=== PATIENT | female | born 1945 | race Caucasian/White ===

== ENCOUNTER 2016-09-29 18:32 | Observation (INO) | payer MEDICARE, OTHER ==
[~2016-09-29] VITALS: Ht 170.2 cm; Wt 62.5 kg
[2016-09-29] VITALS (7 sets, daily range): BP systolic 131–161; BP diastolic 54–73; PULSE 69–124; RESP 14–28; O2SAT 97–99
--- NOTE | 2016-09-29 19:07 | ED.REPORT ---
HPI-Chest Pain 40 and Over Date of Service Sep 29, 2016 ED Provider: Ernesto Hardy MD Pt is a 70 year old female with a history of irregular heart rate and chronic leg pain who presents to the ED via EMS complaining of sharp, radiating, left- sided chest pain onset 2.5 hours prior to arrival. She c/o associated left- sided neck pain, left arm pain, and SOB. Pt also c/o leg pain, which she reports it chronic. She denies fever, cough, and leg swelling. The pt reports that she started to back out of her drive way when the pain started, and she was unable to stop or think due to the pain. She denies a history of A-fib, smoking, or recent falls. Pt was provided aspirin en route. Nursing Notes Stated Complaint: CHEST PAIN Chief Complaint: Chest Pain Nursing Notes Reviewed: Yes Allergies: Coded Allergies: No Known Allergies (Unverified , 09/29/16) Scheduled Bimatoprost (Lumigan) 45 Drop/2.5 Ml Ophsoln 45 DROP BOTH_EYES HS Hydrochlorothiazide (Hydrochlorothiazide) 25 Mg Tablet 25 MG PO DAILY Levothyroxine (Levothyroxine) 75 Mcg Tablet 75 MCG PO DAILY Oxybutynin Chloride (Oxybutynin Chloride) 5 Mg Tablet 5 MG PO DAILY Pantoprazole DR (Protonix) 40 Mg Tablet 40 MG PO DAILY Ranitidine (Ranitidine) 150 Mg Capsule 150 MG PO DAILY Scheduled PRN Docusate Sodium (Colace) 100 Mg Capsule 100 MG PO DAILY PRN PRN For Constipation Hydrocodone-Acetaminophen 5-325 mg (Hydrocodone-Acetaminophen 5-325 mg) 1 Each Tablet 1 TABLET PO Q4H PRN PRN For Pain Miscellaneous Medications Baclofen (Baclofen) 10 Mg Tablet 10 MG PO General Time Seen by MD: 19:06 Chief Complaint Chest pain Hx Obtained From: Patient, EMS Arrived By: Ambulance Sudden in Onset?: No Symptom Duration: Since onset Location: : Chest left Quality: Painful, Pressure, Sharp Severity: Current: Moderate Severity: Maximum: Moderate Recent Healthcare: No recent doctor visit, No recent hospitalization Similar Sx Previous: No Past Medical History Past Medical History Adrenalopathy - Sees Dr. Villalobos Chronic leg pain Past Surgical History Denies Smoking History Never Smoker Social History Other Social History: Good social support, Ambulatory Status Independent Review of Systems Constitutional: Denies: Fever Respiratory: Reports: Shortness of breath, Denies: Non-productive cough Cardiovascular: Reports: Chest pain Musculoskeletal: Reports: Extremity pain, Neck pain, Denies: Extremity swelling Complete sys rev & neg: except as marked. Physical Exam Initial Vital Signs Vital Signs (First) Date Time Temp Pulse Resp B/P Pulse Ox O2 Delivery O2 Flow Rate FiO2 09/29/16 18:42 36.7 124 20 161/67 98 09/29/16 19:50 Room Air Initial VS: Reviewed Head / Eyes: Atraumatic, Normocephalic Neck: Supple, Full range of motion Extremities: Vascular intact, Neuro intact Skin: Warm, Dry, No cyanosis Neurologic: Alert, Oriented, Nonfocal Psychiatric: Mood/affect normal, Behavior normal General/Constitutional: Awake, Alert Respiratory / Chest: Atraumatic, Breath sounds NL, Breath sounds = bilat Cardiovascular: Heart sounds NL, No gallop, No murmurs Heart Rate / Rhythm: Positive: Irreg irregular rhythm, Tachycardia Interpretation & Diagnostics Lab Results Interpretation Result Diagram: 09/29/165 09/29/161854 Test 09/29/16 18:55 White Blood Count 7.0th/mm3 (3.8-10.1) Red Blood Count 4.53mil/mm3 (3.90-5.20) Hemoglobin 13.1g/dL (12.0-15.6) Hematocrit 38.9% (35.0-46.0) Mean Corpuscular Volume 85.9fL (81-100) Mean Corpuscular Hemoglobin 28.9pg (27.0-35.0) Mean Corpuscular Hemoglobin Concent 33.7% (32.0-37.0) Red Cell Distribution Width 13.6% (12.3-15.4) Platelet Count 282bil/L (150-400) Neutrophils (%) (Auto) 54.0% (40-74) Lymphocytes (%) (Auto) 31.7% (14-46) Monocytes (%) (Auto) 10.7% (4-12) Eosinophils (%) (Auto) 2.7% (0-5) Basophils (%) (Auto) 0.6% (0-3) D-Dimer < 0.50mg/L FEU (<0.50) Sodium Level 136mEq/L (134-144) Potassium Level 2.9mEq/L (3.5-5.2) Chloride Level 96mEq/L (97-108) Carbon Dioxide Level 21mmol/L (18-29) Blood Urea Nitrogen 12mg/dL (8-27) Creatinine 0.78mg/dL (0.57-1.00) Estimat Glomerular Filtration Rate 104mL/min (>59) Glucose Level 115mg/dL (60-99) Calcium Level 9.4mg/dL (8.5-10.1) Magnesium Level 1.8mg/dL (1.6-2.6) Total Bilirubin 0.4mg/dL (0.0-1.2) Aspartate Amino Transf (AST/SGOT) 20U/L (0-50) Alanine Aminotransferase (ALT/SGPT) 11U/L (0-32) Alkaline Phosphatase 104U/L (25-165) Total Protein 7.5g/dL (6.4-8.4) Albumin 4.1g/dL (3.4-5.0) Thyroid Stimulating Hormone (TSH) 2.020uIU/mL (0.450-4.500) ECG Interpretation ECG Interpretation: Atrial fibrillation with a rate of 116. Non-specific repol abnormality, diffuse leads No ST changes No acute Time: 19:01 Interpreted by: ED physician ECG Interpretation: Sinus arrythmia with a rate of 82 Time: 21:03 Interpreted by: ED physician ECG Interpretation: Sinus rhythm with a rate of 99. ST impression v3v4 No acute changes Time: 21:45 Interpreted by: ED physician X-Ray Chest Interpretation Chest Xray Interpretation: IMPRESSION: Acute disease is not seen in the upright portable chest. Cause of pain is not identified. Dictated by: Vikas Osborne M.D. on 09/29/2016 at 19:45 View: Portable, 1 view Interpretation / Wet Read by: Interpret - Radiologist Re-Eval/Medical Decision Med Decision/Clinical Course A 70-year-old lady with no known heart disease presenting with chest pain and new onset atrial fibrillation. She had rapid ventricular response to her atrial fibrillation, this was treated with IV Cardizem. With good results with this and she converted back into sinus rhythm with rate control. She continued have some chest pain. 2 repeat EKGs showed sinus rhythm, and a second there is a question of some subtle ST depression on V3 and V4. The patient obtained some relief from her pain from morphine and nitrates, we placed a half inch of Nitropaste. We also gave a GI cocktail. After discussion with the hospitalist, we started heparin on the cardiac protocol. Source of Hx: Old records Time of Eval: 20:36 Re-Evaluation/Progress Note: Pt rechecked. She reports that her chest pain is improved, but still present. Her A-fib rate is controlled. Informed pt of results and plan for admission. Pt understands and agrees with plan for admission. All questions addressed. Time of Eval: 22:27 Patient Status: Condition improved Re-Evaluation/Progress Note: Pt rechecked. She reports improved chest pain, but that it is still present. All questions addressed. Time of Eval: 22:52 Re-Evaluation/Progress Note: Pt rechecked. Informed pt of plan for treatment. Pt understands and agrees with plan for treatment. All questions addressed. Consultation : Referral / Consult Name: Shari Osman MD Consulted With: Hospitalist Call Returned at: 22:41 Photo Mask Inspector: Will see patient, Agrees with eval, Agrees with plan, Accepts admit Counseled Regarding: Diagnosis, Lab results, Need for admission Discharge & Departure Disposition: ADMITTED TO HOSPITAL Discharge Condition All VS Reviewed: Yes Condition: Stable Referrals: Sunshine Mancia MD (PCP) Amberly Attestation Portions of this note were transcribed by Inge Patel. I, Dr. Hardy personally performed the history, physical exam and medical decision-making; I reviewed and confirmed the accuracy of the information in the transcribed note. Signed by : Amberly Quezada, 09/29/16 and 21:40. copies to: Sunshine Mancia MD, Donald L MD Sep 29, 2016 19:07 Inge Balderas Sep 29, 2016 19:42
[2016-09-29] MEDS ORDERED: BIMA2.5D5 BOTH_EYES (19:11)
[2016-09-29] MEDS ORDERED: PANT40TA2 PO (19:11)
[2016-09-29] MEDS ORDERED: LEVO75TA4 PO (19:11)
[2016-09-29] MEDS ORDERED: OXYB5TAB10 PO (19:11)
[2016-09-29 19:12] LABS: BASOPHILS % (AUTO) 0.6 % (0-3); EOSINOPHILS % (AUTO) 2.7 % (0-5); MONOCYTES % (AUTO) 10.7 % (4-12); Mean Corpuscular Hemoglobin 28.9 pg (27.0-35.0); Mean Corpuscular Volume 85.9 fL (81-100); Platelet Count 282 bil/L (150-400)
[2016-09-29] MEDS ORDERED: RANI150C4 PO (19:12)
[2016-09-29] MEDS ORDERED: HYDR-4003 PO (19:12)
[2016-09-29] MEDS ORDERED: DOCU-41 PO (19:12)
[2016-09-29] MEDS ORDERED: HYDR25TA4 PO (19:12)
[2016-09-29] MEDS ORDERED: BACL10TA PO (19:12)
[2016-09-29 19:38] LABS: TROPONIN T < 0.010 ug/L (0.0-0.011)
[2016-09-29] MEDS ORDERED: Diltiazem Inj 125 MG in Dextrose 5% 100 ML IV SCH (19:39)
[2016-09-29] MEDS ORDERED: Diltiazem 5 mg/mL 5 mL Inj IVPUSH ONE (19:40)
[2016-09-29 19:44] LABS: Magnesium 1.8 mg/dL (1.6-2.6)
--- NOTE | 2016-09-29 19:48 | DRSVH ---
PROCEDURE: X-RAY CHEST ONE VIEW, PORTABLE ([id number]) INDICATIONS: chest pain TECHNIQUE: One view of the chest was acquired. COMPARISON: None. FINDINGS: Surgical changes and devices: neuropathologist leads are seen over the chest Lungs and pleura: No pleural effusions or pneumothorax. Lungs are clear. Mediastinum: Mediastinal contours appear normal. Heart size is normal. Bones and chest wall: No suspicious bony lesions. Overlying soft tissues appear unremarkable. IMPRESSION: Acute disease is not seen in the upright portable chest. Cause of pain is not identified. Dictated by: Vikas Osborne M.D. on 09/29/2016 at 19:45 Approved by: Vikas Osborne M.D. on 09/29/2016 at 19:46
[2016-09-29] MEDS ORDERED: Potassium Chloride 20 mEq/15 mL 15mL Oral Soln PO ONE (20:35)
[2016-09-29] MEDS ORDERED: Nitroglycerin 2% 1 Gm Ointment TOPICAL SCH (22:30)
[2016-09-29] MEDS ORDERED: LidocaineVisc 2%:Antacid 1:1 10 mL Syringe PO ONE (22:30)
[2016-09-29] MEDS ORDERED: Heparin 25K Unit/500mL 0.45 NS 25,000 UNIT in IV Premix 1 EACH IV SCH (22:55)
[2016-09-29] MEDS ORDERED: Heparin 5,000 Unit/mL Inj IVPUSH PRN (22:55)
[2016-09-29] MEDS ORDERED: Heparin 5,000 Unit/mL Inj IVPUSH ONE (22:55)
[2016-09-29] MEDS ORDERED: _Albuterol-HFA 60 Puff Inhaler INHALATION PRN (23:00)
[2016-09-29] MEDS ORDERED: Ondansetron 2 mg/mL 2 mL Inj IVPUSH PRN (23:55)
[2016-09-29] MEDS ORDERED: Polyethylene Glycol (PEG) 17 Gm Powder PO PRN (23:55)
[2016-09-29] MEDS ORDERED: Alum-Mag Hydrox-Simeth 30 mL Suspension PO PRN (23:55)
[2016-09-30] VITALS (10 sets, daily range): BP systolic 102–162; BP diastolic 57–80; PULSE 58–77; RESP 14–18; O2SAT 97–99
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
[2016-09-30] MEDS ORDERED: HYDROcodone-APAP 5-325 mg Tablet PO PRN (01:30)
[2016-09-30 05:05] LABS: BASOPHILS % (AUTO) 0.4 % (0-3); EOSINOPHILS % (AUTO) 3.1 % (0-5); MONOCYTES % (AUTO) 10.6 % (4-12); Mean Corpuscular Hemoglobin 29.3 pg (27.0-35.0); Mean Corpuscular Volume 86.8 fL (81-100); NEUTROPHILS % (AUTO) 50.2 % (40-74); Platelet Count 266 bil/L (150-400)
[2016-09-30 05:54] LABS: Magnesium 3.6 mg/dL (1.6-2.6)
[2016-09-30 05:57] LABS: TROPONIN T 0.01 ug/L (0.0-0.011)
--- NOTE | 2016-09-30 07:29 | NUR ---
Admit PT admitted from ED after presenting with CP and SOB. PT found to be in new afib. PT was on dilt gtt for some time in the ED, but has been in NSR since 2229 when the gtt was stopped. PT denies any CP at this time. NO SOB noted. PT on RA and VS are WNL. PT is on hep gtt and it is infusing per protocol. PT in NSR with rate 50-70's. Her assessment is mostly benign aside from some paresis of the limbs and mild weakness due to pt adrenal myeloneuropathy. PT uses a cane to ambulate in room and her gait is steady. PT reminded to call for assist to the bathroom because of IV pump. PT has a stress test ordered. Will CTM for any changes.
[2016-09-30] MEDS ORDERED: _Cephalexin 500 mg Capsule PO SCH (08:30)
[2016-09-30] MEDS ORDERED: ALBU8.5H2 INHALATION (10:06)
[2016-09-30] MEDS: Pantoprazole 40 mg ER24 Tablet PO SCH (10:16)
[2016-09-30] MEDS ORDERED: Albuterol 2.5 mg/3 mL Inhalation Solution NEB PRN (14:10)
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
--- NOTE | 2016-09-30 14:41 | DRSVH ---
PROCEDURE: EITHER REST OR STRESS ONLY Pharmacological stress myocardial perfusion SPECT; gated images not acquired. RADIOPHARMACEUTICAL: 21.8 mCi of Tc-99m sestamibi intravenously at peak pharmacologic stress. INDICATIONS: CHEST PAIN. TECHNIQUE: Radiopharmaceutical was injected at peak stress test. SPECT images were obtained. SPECT myocardial perfusion images were displayed in short axis, horizontal long axis, and vertical axis vi ews. COMPARISON: None. CARDIAC STRESS: A pharmacologic stress test was performed under the supervision of an attending romel engle, using an infusion of lexiscan. Hemodynamic data: There is normal blood pressure and heart rate response to pharmacologic stress. Symptoms: The patient denied anginal chest pain during drug infusion. Aminophylline: 100 mg EKG: No diagnostic EKG changes of ischemia; no ectopy. FINDINGS: Raw data: There is good tracer uptake by the myocardium. No significant motion artifacts. Left ventricular function: Gated images were not obtained to assess wall motion and ejection fractio n, due to irregular heart rate. Myocardial perfusion: There is a small area of mildly decreased uptake affecting the apical anterola teral wall that normalizes on the prone images (making this finding more likely related to artifact). No other imaging defects appreciated IMPRESSION: 1. Appropriate hemodynamic response to pharmacologic stress. 2. No chest pain or diagnostic ECG changes with stress 3. No scintigraphic evidence for significant areas of myocardial ischemia at the level of stress achi eved. 4. Gated images were not obtained Dictated by: Estrella Garcia M.D. on 09/30/2016 at 14:36 Approved by: Estrella Garcia M.D. on 09/30/2016 at 14:39
--- NOTE | 2016-09-30 14:50 | DRSVH ---
[facility] [address] [place] [address] Echocardiogram Report Name: EDVIN CARRERO EStudy Date: Height: 67 in Hospital Exam Location: [facility] Weight: 141 lb Gender: Female BSA: 1.7 m2 : 1945 Age: 70 yrs BP: 140/67 mmHg Reason For Study: AFIB, CHEST PAIN Ordering Physician: Abel Loiazaist Performed By: Benny Hill Referring Physician: Dr Sunshine Mancia Interpretation Summary 1. Normal left ventricular size, wall thickness and systolic function with an estimated EF of 60-65% 2. Normal right ventricular size and systolic function 3. No evidence for valvular pathology Compared to the previous study (images reviewed), no appreciable change Procedure: A two-dimensional transthoracic echocardiogram with color flow and Doppler was performed. The study quality was technically good. Comparison is made with the echocardiogram of 08/22/11. The patient was in normal sinus rhythm during the exam. Left Ventricle: The left ventricle is normal in size. There is normal left ventricular wall thickness. The ejection fraction is estimated to be 60-65%. There are no focal wall motion abnormalities. Right Ventricle: The right ventricle is normal in size and function. Atria: Both atria are normal in size. The interatrial septum is intact with no evidence for an atrial septal defect. Mitral Valve: The mitral valve is normal in structure and function. There is trace mitral regurgitation. Aortic Valve: The aortic valve is normal in structure and function. The aortic valve is trileaflet. The aortic valve opens well. No aortic regurgitation is present. Tricuspid Valve: The tricuspid valve is normal in structure and function. There is a trace or physiologic amount of tricuspid regurgitation. Pulmonary artery pressures cannot be estimated because of the lack of a measurable TR jet velocity. Pulmonic Valve: The pulmonic valve is not well visualized. There is trace pulmonic regurgitation. Great Vessels: The aortic root is normal size. The dimensions of the ascending aorta are normal. The pulmonary artery is normal size. The IVC is of normal diameter and collapses greater than 50% with a sniff. This suggests a low right atrial pressure of 3 mm Hg. Pericardium/ Pleura There is no pericardial effusion. There is no pleural effusion. MMode/2D Measurements & Calculations LVIDd: 4.2 cm LA dimension: 2.9 cm RA long axis Ao root diam LVIDs: 2.7 cm FS: 36.0 % LA A2 area: 15.4 cm RA area Aortic Jxn EPSS: 0.42 cm LA A4 area: 12.6 cm IVSd: 0.73 cm LA length (vol): 4.1 cm : 10.2 cm asc Aorta LVPWd: 0.76 cm LA vol: 40.2 ml RA vol: 23.6 mlDiam: 3.0 cm LA vol index RA : 13.6 mm2 IVC diam: 1.2 cm LV lugo. diameter/BSA LV sys. diameter/BSA (cm/m^2): 2.4 (cm/m^2): 1.5 Doppler Measurements & Calculations Ao V2 max MV E max yoel MV E/A: 0.79 PA V2 max : 106.9 cm/sec : 66.8 cm/sec Med Peak E' Yoel : 69.5 cm/sec Ao max PG MV A max yoel PA mean PG : 4.6 mmHg : 84.6 cm/sec E/E' med: 11.6 Ao mean PG PA Accel Time : 3.0 mmHg : 0.12 sec MV dec time Ao V2 mean PA V2 mean : 0.16 sec : 84.3 cm/sec : 54.3 cm/sec Ao V2 VTI: 22.4 cm PA pr(Accel) : 27.6 mmHg Reading Physician:02:49 PM
[2016-09-30] MEDS: MeTOProlol XL 25 mg ER24 Tablet PO SCH ×2 (15:11→22:43)
--- NOTE | 2016-09-30 15:18 | NUR ---
Social Work: Initial Assessment/Multidisciplinary Rounds D: Per EMR review, pt is a 70 year old female admitted for Chest Pain/Afib. Pt is Medicare with Supplement; pt has no LTC insurance or VA benefits. PCP is Sunshine Mancia MD. NOK is Dre Chaparro, spouse, . Advanced directives info declined. Readmit score not entered at this time. Pt discussed in am rounds. Pt scheduled for a stress test today. Capacity for self-care addressed- no concerns noted at this time as pt has been participating in her own care and ambulating I. DROP WIRER met with the patient and spouse at bedside. Sw role explained, contact info provided and d/c planning checklist provided. Pt and spouse live in a single story home in [place]. The patient is I with ADLs, uses a cane for ambulating and continues to drive. Pt has never had HH or skilled rehab. Pt and spouse express no concerns for discharge home and are receptive to discharge planning should needs arise. No social work needs identified at this time. A: Pt who is I at baseline and lives with her spouse. P: Anticipate pt to discharge home via POV once medically stable; DROP WIRER to continue to follow to assess for discharge needs. AMBIKA Moulton Addendum: 09/30/16 at 1525 by HILL ROACH SS Amended: Links added.
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
--- NOTE | 2016-09-30 16:36 | NUR ---
Stress Test 0930 - Nuclear Medicine called to say that her stress test would take place today and that it would be okay for her to receive her AM medications. 0945 - Discussed her care with Dr. Johnson, Dr. Bonilla, and the rest of the multidisciplinary care team during morning rounds. They said that if her stress test results turned out well she would likely discharge today. 1030 - Received a verbal order from Dr. Bonilla to discontinue her Heparin for the stress test. It was discontinued. About 1100 - She left for her stress test at this time. Telemetry taken off and Technical Planner notified. 1239 - She returned about this time and her Heparin was restarted per MD orders. Her telemetry was not placed back on right away as Benny, the hydroelectric systems technician, wanted to keep it off for the Echocardiogram. Telemetry was placed back on her once the Echo test was completed. Technical Planner was notified. 3691 - Spoke to Dr. Garcia who wanted her to get up to walk, keep her Heparin drip going, start Warfarin per Pharmacy dosing, start Metoprolol, and likely discharge tomorrow. She was able to get up and walk around the unit with her and tolerated it well. The medications were started or continued according to MD orders. Care continues.
--- NOTE | 2016-09-30 19:09 | NUR ---
YOEL explained and signed. Copy of YOEL and Medicare self administered mediation information given to pt.
--- NOTE | 2016-09-30 19:45 | PCM.CONPHA ---
Subjective Date of Service: Sep 30, 2016 Chest pain Reason for Pharmacy Consult: Vancomycin Dosing Objective Vital Signs Date Time Temp Pulse Resp B/P Pulse Ox O2 Delivery O2 Flow Rate FiO2 09/30/16 15:30 36.6 62 18 144/69 97 Room Air 09/30/16 10:33 77 09/30/16 10:09 36.7 65 17 140/67 98 Room Air 09/30/16 04:52 68 09/30/16 04:33 36.8 58 16 131/71 99 Room Air 09/30/16 01:38 36.6 70 16 162/80 99 Room Air 09/30/16 01:05 36.7 65 16 137/59 99 Room Air 09/30/16 01:03 65 16 137/59 99 Room Air 09/29/16 22:06 69 14 131/54 97 Room Air 09/29/16 21:10 96 28 150/73 97 Room Air 09/29/16 21:08 83 150/73 Room Air 09/29/16 20:43 74 28 148/56 99 Room Air 09/29/16 19:50 102 22 147/63 97 Room Air Intake and Output 09/28/16 09/29/16 09/30/16 00:00 00:00 00:00 Intake Total 225 ml Balance 225 ml Weight (Kilograms): 63.900 Height (Feet): 5 Height (Inches): 7.00 Test 09/29/16 18:55 09/30/16 04:50 09/30/16 10:05 09/30/16 14:14 D-Dimer < 0.50mg/L FEU (<0.50) Thyroid Stimulating Hormone (TSH) 2.020uIU/mL (0.450-4.500) White Blood Count 7.0th/mm3 (3.8-10.1) Red Blood Count 4.54mil/mm3 (3.90-5.20) Mean Corpuscular Volume 86.8fL (81-100) Mean Corpuscular Hemoglobin 29.3pg (27.0-35.0) Mean Corpuscular Hemoglobin Concent 33.8% (32.0-37.0) Red Cell Distribution Width 13.8% (12.3-15.4) Platelet Count 266bil/L (150-400) Neutrophils (%) (Auto) 50.2% (40-74) Lymphocytes (%) (Auto) 35.6% (14-46) Monocytes (%) (Auto) 10.6% (4-12) Eosinophils (%) (Auto) 3.1% (0-5) Basophils (%) (Auto) 0.4% (0-3) Erythrocyte Sedimentation Rate 18mm/hr (0-40) Sodium Level 147mEq/L (134-144) Potassium Level 4.2mEq/L (3.5-5.2) Chloride Level 110mEq/L (97-108) Carbon Dioxide Level 18mmol/L (18-29) Blood Urea Nitrogen 10mg/dL (8-27) Creatinine 0.79mg/dL (0.57-1.00) Estimat Glomerular Filtration Rate 103mL/min (>59) Glucose Level 126mg/dL (60-99) Calcium Level 10.6mg/dL (8.5-10.1) Magnesium Level 3.6mg/dL (1.6-2.6) Total Bilirubin 0.4mg/dL (0.0-1.2) Aspartate Amino Transf (AST/SGOT) 24U/L (0-50) Alanine Aminotransferase (ALT/SGPT) 13U/L (0-32) Alkaline Phosphatase 155U/L (25-165) Troponin T 0.010ug/L (0.0-0.011) C-Reactive Protein 0.1mg/dL (0.0-0.5) Total Protein 6.8g/dL (6.4-8.4) Albumin 4.0g/dL (3.4-5.0) Hemoglobin 14.0g/dL (12.0-15.6) Hematocrit 41.3% (35.0-46.0) Prothrombin Time 10.7sec (8.1-12.5) Prothromb Time International Ratio 1.00ratio Test 09/30/16 17:23 Activated Partial Thromboplast Time 39.4sec (22.8-33.0) Assessment/Plan Assessment/Plan Warfarin management per pharmacy Indication: atrial fibrillation Home dose: not applicable, new start INR today: 1.0 Give warfarin 5 mg PO one time this evening. Patient is therapeutically anticoagulated with heparin drip. Serial INRs ordered. Pharmacy to continue to monitor and dose warfarin daily. Thank you, Ambar Morgan Pharmacist Ambar Morgan Sep 30, 2016 19:45
[2016-10-01 00:30] VITALS: BP 107/65; PULSE 52; RESP 16; O2SAT 96
[2016-10-01 03:54] VITALS: BP 110/66; PULSE 58; O2SAT 97
[2016-10-01 05:56] LABS: INR 1.01 ratio
--- NOTE | 2016-10-01 06:38 | NUR ---
HR/BP/UA Sample Pt's HR has remained sinus 50s-60s with no s/s of weakness or SOB. Pt continues to have SBP in the 90s-100s and pt's MAP is >60. Pt has been made aware that we still need a urine sample to be sent. A clean hat has been provided in the pt's toilet in the and a urine sample cup is sitting on the counter in front of the pt's room.
[2016-10-01 08:30] VITALS: PULSE 53; RESP 16; O2SAT 94
[2016-10-01] MEDS: MeTOProlol XL 25 mg ER24 Tablet PO SCH (08:30)
[2016-10-01] MEDS: Pantoprazole 40 mg ER24 Tablet PO SCH (08:59)
[2016-10-01 10:50] VITALS: PULSE 49
--- NOTE | 2016-10-01 10:58 | PCM.DIMED ---
Discharge Instructions Date of Service Oct 01, 2016 Dates of Hospitalization Sep 29, 2016 at 22:50 Discharge Diagnosis Discharge Diagnosis Chest pain ruled out ACS. Present on admission. Resolved. Paroxysmal Atrial fibrillation. Present on admission. Resolved. Hypokalemia. Present on admission. Resolved. Hypothyroidism. Chronic. Stable. Hypertension, chronic. GERD. Chronic. Stable. Adrenal myeloneuropathy. Chronic. Ongoing Urinary incontinence. Chronic. Ongoing Diet Discharge Diet: Heart Healthy Activity Discharge Activity: No restrictions Call your provider Call your provider for: Shortness of breath, Chest pain, Weakness (unilateral) Patient Instructions Patient Instructions - You were in the hospital for an irregular hear rhythm called Atrial Fibrillation. This is common in the older population, but it is important that we keep your heart rate under control. - Both your stress test and echocardiogram are normal. - You will need to take a new medication called Methoprolol succinate 25mg twice daily. - We discussed about risks of stroke and you agreed to start Warfarin. Due to your unsteadiness and risks of falls, it is very important to understand about your bleeding risk while on the Warfarin. If you change your mind about the Warfarin, please talk to your regular doctor or hvac sheet metal installer. They might consider replacing it with Aspirin instead. - You need to follow up with the [facility] to monitor the blood thinning level (INR). You will need your INR check in 2-3 days. Your INR is not optimal currently. - Continue your other medications as directed. - Follow up with Dr. Mancia in 1-2 weeks. - Follow up with Dr. Garcia (cardiology) in 1-2 months. - Go to the ER if you develop recurrent chest pain, palpitations, headache, SOB , nausea, or vomiting. Follow-up Provider: Sunshine Mancia MD Follow-up with PCP in: 1 week Provider: Estrella Garcia MD Follow-up in: 4 weeks Kaylen Bonilla DO Oct 01, 2016 07:35
[2016-10-01] MEDS ORDERED: METO25TA99 PO (11:07)
[2016-10-01] MEDS ORDERED: WARF5TAB PO (11:07)
[2016-10-01 12:27] VITALS: BP 152/63; PULSE 62; RESP 12; O2SAT 99
--- NOTE | 2016-10-01 13:07 | NUR ---
Social Work Note: Multidisciplinary Rounds/Discharge Data& Assessment: Pt was discussed in AM rounds today, per MD pt is medically ready to discharge home via POV. Rivka Mena is a 70 year old female admitted on 09/29/2016 for chest pain and AFIB. Per pt is medically improved and ready to discharge. SW met with pt and pt at bedside to confirm discharge plan and assess for any unmet needs. Pt to transport her home today. Pt states that she feels like she is at her baseline and has been ambulating independently during this hospitalization and independent with self care. Pt and pt denies any other needs. No MD orders identified. No other discharge needs identified. Plan: Per pt is medically ready to discharge home via POV. Pt and pt denies any other needs. No MD orders identified. No other discharge needs identified. AMBIKA Hsu
--- NOTE | 2016-10-01 13:22 | NUR ---
Discharge instructions Reviewed discharge instructions with patient and patient's . Both verbalized understanding. Patient discharged with prescriptions and instructions. IV and telemetry previously discontinued. Patient left hospital with to home self care.
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
[2016-10-02 05:11] LABS: Vitamin B12 143 pg/mL (211-946)
== END 2016-10-01 12:50 | disposition home or self-care (01) ==
LOC: EDBD 18:32 → SED 18:32 → INTOOBSV 22:50 → PCC 22:50
PROVIDERS: ADMIT Specialist; ATTEND Internal Medicine
DX: R07.9 Chest pain, unspecified (principal); I48.0 Paroxysmal atrial fibrillation; E87.6 Hypokalemia; E03.9 Hypothyroidism, unspecified; I10 Essential (primary) hypertension; K21.9 Gastro-esophageal reflux disease without esophagitis; G62.9 Polyneuropathy, unspecified; R32 Unspecified urinary incontinence; E78.5 Hyperlipidemia, unspecified; F32.9 Major depressive disorder, single episode, unspecified; M81.0 Age-related osteoporosis without current pathological fracture; E53.8 Deficiency of other specified B group vitamins; I00 Rheumatic fever without heart involvement; Z79.01 Long term (current) use of anticoagulants
CPT/HCPCS: 36415; 71010; 78451; 80048; 80053; 82607; 82746; 82948; 83735; 84443; 84484; 85014; 85018; 85025; 85378; 85610; 85651; 85730; 86140; 93005; 93017; 94799; 96374; 96375; 96376; 99285; A9502; C8929; G0378; J0280; J1644; J2270; J2785